=== PATIENT | male | born 1960 | race Caucasian/White ===

== ENCOUNTER 2020-03-20 16:54 | Emergency (ER) | payer OTHER ==
[2020-03-20 17:07] VITALS: TEMP 97.9
[2020-03-20] MEDS ORDERED: SODIUM CHLORIDE 0.9% 1,000 ML IV STA (17:33)
--- NOTE | 2020-03-20 17:35 | ED ---
Arrhythmia/Palpitations HPI - General Chief Complaint: Arrhythmia/Palpitations Stated Complaint: AFib Time Seen by Provider: 03/20/20 17:15 Source: patient, RN notes reviewed Mode of arrival: ambulatory Limitations: no limitations - History of Present Illness Initial Comments: This is a 51-year-old male with a lifelong history of intermittent atrial fib rillation also a history of hypertension and high cholesterol who states he normally has runs of A. fib the last briefly anywhere from 2 hours and 24 hours he states that over last several days ovaries had persistent palpitations and A. fib some lightheadedness and dizziness. No chest pain no fevers chills nausea vomiting sweats. No other modifying factors no new medications no change in diet. MD Complaint: "heart racing", palpitations - Related Data Home Medications Medication Instructions Recorded Confirmed Lisinopril 40 mg PO DAILY 03/30/15 10/03/15 Lovastatin [Mevacor] 40 mg PO HS 03/30/15 10/03/15 Aspirin 81 mg PO DAILY 09/29/15 10/03/15 amLODIPine [Norvasc] 5 mg PO DAILY 09/29/15 10/03/15 Previous Rx's Medication Instructions Recorded Metoprolol Succinate (ER) [Toprol 25 mg PO DAILY #30 tab 03/20/20 Xl] Rivaroxaban [Xarelto Starter Pack] 20 mg PO DIRECTED 30 Days #1 03/20/20 pack Allergies Allergy/AdvReac Type Severity Reaction Status Date / Time No Known Allergies Allergy Verified 03/20/20 17:07 Review of Systems ROS Statement: Those systems with pertinent positive or pertinent negative responses have been documented in the HPI. ROS Other: All systems not noted in ROS Statement are negative. Past Medical History Past Medical History: Atrial Fibrillation, Hyperlipidemia, Hypertension History of Any Multi-Drug Resistant Organisms: None Reported Past Surgical History: Tonsillectomy Past Anesthesia/Blood Transfusion Reactions: No Reported Reaction Past Psychological History: No Psychological Hx Reported Smoking Status: Never smoker - Past Family History Mother Family Medical History: Cancer Father Family Medical History: Cancer General Exam - General Exam Comments Initial Comments: This is a well-developed well-nourished awake alert oriented 3 male Limitations: no limitations General appearance: alert, in no apparent distress Head exam: Present: atraumatic, normocephalic, normal inspection Eye exam: Present: normal appearance, PERRL, EOMI. Absent: scleral icterus, conjunctival injection, periorbital swelling ENT exam: Present: normal exam, mucous membranes moist Neck exam: Present: normal inspection. Absent: tenderness, meningismus, lymphadenopathy Respiratory exam: Present: normal lung sounds bilaterally. Absent: respiratory distress, wheezes, rales, rhonchi, stridor Cardiovascular Exam: Present: tachycardia, irregular rhythm. Absent: systolic murmur, diastolic murmur, rubs, gallop, clicks GI/Abdominal exam: Present: soft, normal bowel sounds. Absent: distended, tenderness, guarding, rebound, rigid Extremities exam: Present: normal inspection, full ROM, normal capillary refill. Absent: tenderness, pedal edema, joint swelling, calf tenderness Back exam: Present: normal inspection Neurological exam: Present: alert, oriented X3, CN II-XII intact Psychiatric exam: Present: normal affect, normal mood Skin exam: Present: warm, dry, intact, normal color. Absent: rash Course Vital Signs 03/20/20 17:01 Temperature 97.9 F Pulse Rate 68 Respiratory 18 Rate Blood Pressure 170/122 O2 Sat by Pulse 98 Oximetry - Reevaluation(s) Reevaluation #1: 03/20/20 18:31 The patient did convert to a sinus rhythm. EKG Findings - EKG Results: EKG: interpreted by ANGELINA ( fibrillation rate of 111 QRS 116 QT since QTC 326/443 incomplete right bundle-branch block with anterior fascicular block no acute ST-T wave changes seen) Medical Decision Making - Medical Decision Making The patient did convert to a normal sinus rhythm while in emergency department. He is asymptomatic. I did review the lab work and findings with the patient. I did discuss the case with Dr. Rice. Patient will be discharged on Xarelto 20 mg per day as well as Toprol 25 mg per day he will stop the amlodipine. He will call tomorrow for an appointment to follow-up in the office. - Lab Data Result diagrams: 03/20/20 17:17 03/20/20 17:17 Lab Results 03/20/20 03/20/20 03/20/20 Range/Units 17:17 17:17 17:17 WBC 5.5 (3.8-10.6) k/uL RBC 5.26 (4.30-5.90) m/uL Hgb 16.9 (13.0-17.5) gm/dL Hct 47.4 (39.0-53.0) % MCV 90.0 (80.0-100.0) fL MCH 32.2 (25.0-35.0) pg MCHC 35.8 (31.0-37.0) g/dL RDW 12.6 (11.5-15.5) % Plt Count 221 (150-450) k/uL Neutrophils % 66 % Lymphocytes % 20 % Monocytes % 7 % Eosinophils % 4 % Basophils % 1 % Neutrophils # 3.6 (1.3-7.7) k/uL Lymphocytes # 1.1 (1.0-4.8) k/uL Monocytes # 0.4 (0-1.0) k/uL Eosinophils # 0.2 (0-0.7) k/uL Basophils # 0.1 (0-0.2) k/uL PT 10.3 (9.0-12.0) sec INR 1.0 (<1.2) APTT 26.8 (22.0-30.0) sec Sodium 139 (137-145) mmol/L Potassium 4.6 (3.5-5.1) mmol/L Chloride 107 (98-107) mmol/L Carbon Dioxide 21 L (22-30) mmol/L Anion Gap 11 mmol/L BUN 17 (9-20) mg/dL Creatinine 0.82 (0.66-1.25) mg/dL Est GFR (CKD-EPI)AfAm >90 (>60 ml/min/1.73 sqM) Est GFR (CKD-EPI)NonAf >90 (>60 ml/min/1.73 sqM) Glucose 131 H (74-99) mg/dL Calcium 9.8 (8.4-10.2) mg/dL Magnesium 2.1 (1.6-2.3) mg/dL Total Bilirubin 0.5 (0.2-1.3) mg/dL AST 41 (17-59) U/L ALT 47 (4-49) U/L Alkaline Phosphatase 72 (38-126) U/L Creatine Kinase 75 (55-170) U/L Troponin I (0.000-0.034) ng/mL Total Protein 8.1 (6.3-8.2) g/dL Albumin 4.9 (3.5-5.0) g/dL 03/20/20 Range/Units 17:17 WBC (3.8-10.6) k/uL RBC (4.30-5.90) m/uL Hgb (13.0-17.5) gm/dL Hct (39.0-53.0) % MCV (80.0-100.0) fL MCH (25.0-35.0) pg MCHC (31.0-37.0) g/dL RDW (11.5-15.5) % Plt Count (150-450) k/uL Neutrophils % % Lymphocytes % % Monocytes % % Eosinophils % % Basophils % % Neutrophils # (1.3-7.7) k/uL Lymphocytes # (1.0-4.8) k/uL Monocytes # (0-1.0) k/uL Eosinophils # (0-0.7) k/uL Basophils # (0-0.2) k/uL PT (9.0-12.0) sec INR (<1.2) APTT (22.0-30.0) sec Sodium (137-145) mmol/L Potassium (3.5-5.1) mmol/L Chloride (98-107) mmol/L Carbon Dioxide (22-30) mmol/L Anion Gap mmol/L BUN (9-20) mg/dL Creatinine (0.66-1.25) mg/dL Est GFR (CKD-EPI)AfAm (>60 ml/min/1.73 sqM) Est GFR (CKD-EPI)NonAf (>60 ml/min/1.73 sqM) Glucose (74-99) mg/dL Calcium (8.4-10.2) mg/dL Magnesium (1.6-2.3) mg/dL Total Bilirubin (0.2-1.3) mg/dL AST (17-59) U/L ALT (4-49) U/L Alkaline Phosphatase (38-126) U/L Creatine Kinase (55-170) U/L Troponin I <0.012 (0.000-0.034) ng/mL Total Protein (6.3-8.2) g/dL Albumin (3.5-5.0) g/dL - Radiology Data Radiology results: report reviewed (Imaging no acute findings), image reviewed Disposition Clinical Impression: Paroxysmal atrial fibrillation with rapid ventricular response Disposition: HOME SELF-CARE Condition: Good Instructions (If sedation given, give patient instructions): A-fib (Atrial Fibrillation) (ED) Additional Instructions: Stop taking the amlodipine prescription Prescriptions: Metoprolol Succinate (ER) [Toprol Xl] 25 mg PO DAILY #30 tab Rivaroxaban [Xarelto Starter Pack] 20 mg PO DIRECTED 30 Days #1 pack Is patient prescribed a controlled substance at d/c from ED?: No Referrals: Gregory Tobias MD [Primary Care Provider] - 1-2 days Feroz Rice MD [STAFF PHYSICIAN] - 1-2 days
[2020-03-20 17:47] LABS: Basophils # (A) 0.1 k/uL (0-0.2); Basophils % (A) 1 %; Eosinophils # (A) 0.2 k/uL (0-0.7); Eosinophils % (A) 4 %; HCT 47.4 % (39.0-53.0); HGB 16.9 gm/dL (13.0-17.5); Lymphocytes # (A) 1.1 k/uL (1.0-4.8); Lymphocytes % (A) 20 %; MCH 32.2 pg (25.0-35.0); MCHC 35.8 g/dL (31.0-37.0); Mean Platelet Volume 7.2; Monocytes # (A) 0.4 k/uL (0-1.0); Monocytes % (A) 7 %; Neutrophils # (A) 3.6 k/uL (1.3-7.7); Neutrophils % (A) 66 %; Platelet Count 221 k/uL (150-450); RBC 5.26 m/uL (4.30-5.90); RDW 12.6 % (11.5-15.5); WBC 5.5 k/uL (3.8-10.6)
[2020-03-20 17:59] LABS: Partial Thromboplastin Time 26.8 sec (22.0-30.0); Prothrombin Time 10.3 sec (9.0-12.0)
[2020-03-20 18:04] LABS: ALT 47 U/L (4-49); AST 41 U/L (17-59); African American GFR (CKD) >90 (>60 ml/min/1.73 sqM); Albumin 4.9 g/dL (3.5-5.0); Alkaline Phosphatase 72 U/L (38-126); Anion Gap 11 mmol/L; Blood Urea Nitrogen 17 mg/dL (9-20); Calcium 9.8 mg/dL (8.4-10.2); Carbon Dioxide 21 mmol/L (22-30); Chloride 107 mmol/L (98-107); Creatine Kinase 75 U/L (55-170); Glucose 131 mg/dL (74-99); Magnesium 2.1 mg/dL (1.6-2.3); Non-African American GFR(CKD) >90 (>60 ml/min/1.73 sqM); Potassium 4.6 mmol/L (3.5-5.1); Sodium 139 mmol/L (137-145); Total Bilirubin 0.5 mg/dL (0.2-1.3); Total Protein 8.1 g/dL (6.3-8.2)
--- NOTE | 2020-03-20 18:09 | XR ---
EXAMINATION TYPE: XR chest 2V DATE OF EXAM: 03/20/2020 COMPARISON: 03/30/2015 HISTORY: 59-year-old male dysrhythmia TECHNIQUE: PA and lateral views FINDINGS: Heart upper limits of normal in size. Bilateral hilar prominence. Some strandy atelectasis in the low er lungs. No consolidation or pleural effusion seen. IMPRESSION: 1. Bilateral hilar prominence could represent vascular superimposition artifacts. Nonemergent contras t enhanced CT can exclude underlying lymphadenopathy. 2. Some strandy atelectasis in the lower lungs. Otherwise, no acute cardiopulmonary process.
[2020-03-20] MEDS ORDERED: METOPROLOL SUCCINATE (ER) 25 MG TAB.ER.24H PO STA (18:28)
[2020-03-20] MEDS ORDERED: RIVAROXABAN 20 MG TAB PO STA (18:28)
[2020-03-20 18:50] VITALS: BP 136/113; PULSE 86; RESP 16
== END 2020-03-20 18:50 | disposition home or self-care (01) ==
LOC: EC 16:54
DX: I48.0 Paroxysmal atrial fibrillation (principal); E78.5 Hyperlipidemia, unspecified; I10 Essential (primary) hypertension; Z79.82 Long term (current) use of aspirin; Z79.899 Other long term (current) drug therapy
CPT/HCPCS: 36415; 71046; 80053; 82550; 83735; 84443; 84484; 85025; 85610; 85730; 93005; 99285